=== PATIENT | male | born 1970 | race Caucasian/White ===

== ENCOUNTER 2017-06-20 20:49 | Emergency (ER) | payer SELFPAY ==
[2017-06-20 21:04] VITALS: BP 154/84; PULSE 79; RESP 16; TEMP 98.4; O2SAT 96
--- NOTE | 2017-06-20 21:12 | EDPHY ---
H & P Time Seen by Provider: 06/20/17 21:00 HPI/ROS: CHIEF COMPLAINT: Redness on the top of the left foot HISTORY OF PRESENT ILLNESS: 46-year-old male noticed area redness, slight warmth, slight swelling over the dorsum of his left ankle earlier today. He thought it might have been due to his shoes and changed shoes but the area has continued to be red, warm, and swollen. No history of gout. No history of trauma to the area or insect bite or abrasion or skin trauma. No fever, chills, chest pain, shortness of breath, palpitations, vomiting, diarrhea, urinary complaints, headache, lightheadedness. REVIEW OF SYSTEMS: Aside from elements discussed in the HPI, a comprehensive 10-point review of systems was reviewed and is negative. PAST MEDICAL HISTORY: Patient denies. SOCIAL HISTORY: Noncontributory. Nonsmoker. GENERAL APPEARANCE: Pleasant, alert, no distress. FOCUSED EXAM OF left lower extremity: Calf compartment is soft. There is no swelling of the lower extremity. Full range of motion at the ankle, area 5 cm in her ears over the dorsum of the ankle which is slightly red, blanches, slightly warm to the touch. In the center of this are 2 skin lesions which may be the results of shoes being tied tightly. Please see the diagram. Full range of movement motion of the ankle. No swelling of the ankle joint itself. Neurovascular exam: Good capillary refill, normal motor exam, normal neurologic exam. Smoking Status: Never smoked Constitutional: Initial Vital Signs Temperature (C) 36.9 C 06/20/17 21:02 Heart Rate 79 06/20/17 21:02 Respiratory Rate 16 06/20/17 21:02 Blood Pressure 154/84 H 06/20/17 21:02 O2 Sat (%) 96 06/20/17 21:02 O2 Delivery Mode Room Air Allergies/Adverse Reactions: No Known Allergies Allergy (Unverified 06/20/17 21:02) Home Medications: Medication Instructions Recorded Cephalexin [Keflex (RX)] 500 mg PO QID 7 Days cap 06/20/17 ED Images - Extremities Feet Top: 1 - blanching, erythema, slight swelling and warmth MDM/Departure - MDM Medications Given: Discontinued Medications Cephalexin HCl (Keflex) 500 mg PO EDNOW ONE PRN Reason: Protocol Stop: 06/20/17 21:15 Last Admin: 06/20/17 21:29 Dose: 500 mg ED Course/Re-evaluation: Patient is concerned that this might represent a DVT. We discussed DVT, superficial thrombophlebitis, cellulitis, potential abrasion or skin trauma from his shoes, and cellulitis. We discussed early gout. Patient will be placed on Keflex. He understands reasons to return to the emergency department and precautions regarding alternative diagnosis. He is comfortable with the plan. Differential Diagnosis: Differential diagnosis considered included but not limited to cellulitis, superficial thrombophlebitis, early gout, arthritis, occult trauma - Depart Disposition: Home, Routine, Self-Care Clinical Impression: Cellulitis Condition: Good Instructions: Cephalexin (By mouth), Cellulitis (ED), Superficial Thrombophlebitis (ED) Additional Instructions: I suspect the redness on your foot is the result of a early skin infection. Please take the Keflex as directed. Keflex 500 mg by mouth 4 times a day for the next 5 days. Please take ibuprofen 400-600 mg every 8 hr for both pain relief as well as anti inflammation. If her ankle is swelling significantly despite the above treatment, please return to the emergency department. If the pain is worsening despite the above treatment, please see care urgently. Follow up with her primary care physician within the next 3-4 days for re- evaluation and to ensure your symptoms have cleared. Prescriptions: Cephalexin [Keflex (RX)] 500 mg PO QID 7 Days cap Referrals: NONE *PRIMARY CARE P,. [Primary Care Provider] - As per Instructions
[2017-06-20] MEDS ORDERED: CEPHALEXIN 500 MG CAP PO ONE (21:14)
== END 2017-06-20 21:32 | disposition home or self-care (01) ==
LOC: CED 20:49
DX: L03.116 Cellulitis of left lower limb (principal)